=== PATIENT | female | born 1980 | race Caucasian/White ===

== ENCOUNTER 2019-08-29 19:45 | Emergency (ER) | payer OTHER, SELFPAY ==
[2019-08-29 19:47] VITALS: BP 136/88; PULSE 77; RESP 16; TEMP 36.9; O2SAT 98
--- NOTE | 2019-08-29 20:12 | ED.URI ---
HPI - URI/Sore Throat General Chief Complaint: Upper Respiratory Infection Stated Complaint: cough/fever Time Seen by Provider: 08/29/19 19:58 Source: patient Mode of arrival: ambulatory Limitations: no limitations History of Present Illness HPI Narrative: Patient presents chief complaint of fever for 3 to 4 days and cough. Patient denies nausea, vomiting, diarrhea. Patient's been taking [id number] medication in attempt to alleviate her symptoms. Patient states that she just received her flu shot this past week. Related Data Home Medications Medication Instructions Recorded Confirmed bupropion HCl [Wellbutrin XL] 150 mg PO QAM 08/29/19 08/29/19 cetirizine [Zyrtec] 10 mg PO DAILY 08/29/19 08/29/19 fluticasone propionate [Flonase 2 spray INTRANASAL DAILY 08/29/19 08/29/19 Allergy Relief] sertraline [Zoloft] 50 mg PO DAILY 08/29/19 08/29/19 sertraline [Zoloft] 100 mg PO DAILY 08/29/19 08/29/19 Allergies Allergy/AdvReac Type Severity Reaction Status Date / Time metoclopramide [From Reglan] Allergy Anxiety Verified 08/29/19 20:07 topiramate [From Topamax] Allergy Altered Verified 08/29/19 20:08 Sense of Taste levofloxacin [From Levaquin] AdvReac Muscle Pain Verified 08/29/19 20:08 Sulfa (Sulfonamide AdvReac Hives Verified 08/29/19 20:08 Antibiotics) Review of Systems Review of Systems: Narrative: CONSTITUTIONAL: Reports fever, denies chills, or sweats. EYES: Denies visual changes, redness, or discharge. ENT: Denies rhinorrhea, congestion, sore throat, or otalgia. CARDIOVASCULAR: Denies chest pain, palpitations, or edema. RESPIRATORY: Reports cough denies dyspnea. GASTROINTESTINAL: Denies abdominal pain, nausea, vomiting, or diarrhea. GENITOURINARY: Denies dysuria or hematuria. SKIN: Denies rash or itching. MUSCULOSKELETAL: Denies back pain, joint pain, or myalgia. NEUROLOGIC: Denies headache, numbness, dizziness, or weakness. PSYCHIATRIC: Denies anxiety or depression. [facility] Past Medical History Medical History (Updated 08/29/19 @ 20:37 by Michael Lugo PA-C) Anxiety and depression Seasonal allergies Social History Social History (Updated 08/29/19 @ 20:37 by Michael Lugo PA-C) Substance use: never Gender identity (if verbalized by the patient): Female Exam Narrative: Exam Narrative: GENERAL: Well-appearing, well-nourished, and in no acute distress. HEAD: Normocephalic, atraumatic. EYES: PERRLA and EOMI. ENT: Nares clear, no rhinorrhea or epistaxis. Mucous membranes moist. Oropharynx without tonsillar hypertrophy exudate or other lesions. Bilateral TMs pearly gould nonbulging NECK: Supple. No adenopathy or masses. CHEST: Clear to auscultation. No respiratory distress. HEART: Regular rate and rhythm. EXTREMITIES: Normal range of motion. No edema. SKIN: Warm, dry, no rash. NEURO: No focal deficits. Alert and oriented x3. PSYCH: Normal mood and affect. Course Vital Signs Vital signs: Vital Signs Temperature 98.4 F 08/29/19 19:47 Pulse Rate 77 08/29/19 19:47 Respiratory Rate 16 08/29/19 19:47 Blood Pressure 136/88 08/29/19 19:47 Pulse Oximetry 98 08/29/19 19:47 Temperature 98.4 F 08/29/19 19:47 Pulse Rate 77 08/29/19 19:47 Respiratory Rate 16 08/29/19 19:47 Blood Pressure 136/88 08/29/19 19:47 Pulse Oximetry 98 08/29/19 19:47 MDM - URI/Sore Throat MDM Narrative Medical decision making narrative: Discussed with patient that she is out of the window for 48 hours for antivirals. Discussed with patient symptomatic treatment and follow-up with primary care if symptoms persist. Instructed patient she must be fever free for 24 hours without ibuprofen or Tylenol before returning to work or school. Patient verbalized understand agreeable plan denies any other questions or concerns. Patient is not toxic in appearance her vital signs. And is appropriate for outpatient management of influenza. Differential Diagnosis Differential
== END 2019-08-29 20:30 | disposition home or self-care (01) ==
PROVIDERS: Emergency Provider Emergency Medicine; PCP Family Medicine
DX: J10.1 Influenza due to other identified influenza virus with other respiratory manifestations (principal)
CPT/HCPCS: 87804; 99283

== ENCOUNTER 2020-02-28 18:59 | Emergency (ER) | payer OTHER, SELFPAY ==
--- NOTE | ~2020-02-28 | XR_ITS ---
EXAMINATION: XR chest 2V DATE: 02/28/2020 21:50 INDICATION: Lightheadedness. Right-sided chest pain. TECHNIQUE: PA and lateral views of the chest were obtained. COMPARISON: None FINDINGS: The lungs are clear with no focal airspace opacities, pulmonary edema, pleural effusion or pneumothor ax. The cardiomediastinal silhouette is normal. Visualized bones and soft tissues are unremarkable. IMPRESSION: 1. Normal chest radiograph. Reviewed, dictated and finalized at location A. IMPRESSION: 1. Normal chest radiograph.
--- NOTE | ~2020-02-28 | CT_ITS ---
EXAMINATION: CT abdomen pelvis w con DATE: 02/28/2020 21:47 INDICATION: Back pain radiating into the abdomen TECHNIQUE: Computed tomography (CT) of the abdomen and pelvis was performed with 100 mL Omnipaque-350 intravenous contrast. Automated exposure control and iterative reconstruction technique were employe d. The dose-length product was 993.50 mGy-cm. COMPARISON: None FINDINGS: Lung bases are clear. Heart size is normal. No pericardial or pleural effusion. Liver, gallbladder, s pleen, pancreas, bilateral adrenal glands and kidneys are normal. Bowels including the appendix are n ormal. Bladder, anteverted uterus and bilateral adnexa are unremarkable. No free intraperitoneal gas or fluid. No pathologically enlarged abdominal or pelvic lymphadenopathy. Tiny fat-containing umbilic al hernia. Bones are unremarkable. IMPRESSION: 1. No acute intra-abdominal/pelvic process. Reviewed, dictated and finalized at location A.
[2020-02-28 19:02] VITALS: BP 163/84; PULSE 58; RESP 17; TEMP 36.2; O2SAT 98
[2020-02-28 19:30] LABS: Add Urine Microscopic? YES; Appearance Urine Clear (Clear); Bacteria Urine Trace /hpf; Bilirubin Urine Negative (Negative); Blood Urine Negative (Negative); Color Urine Yellow (Yellow); Glucose Urine UA Negative (Negative); Ketones Urine Negative (Negative); Leukocyte Esterase Ur 2+ LEU/UL (Negative); Mucus Urine Rare /lpf; Nitrate Urine Negative (Negative); Protein Urine Negative (Negative); RBC Urine 0-2 /hpf (0-2); Specific Grav Ur 1.012 (1.001-1.035); Squamous Epithelial Cell Urine Moderate /hpf (Few); Urobilinogen Urine Negative mg/dL (<2.0); WBC Urine 31-50 /hpf
--- NOTE | 2020-02-28 20:12 | ECG_ITS ---
Measurements Intervals [place] Rate: 47 P: 12 AR: 156 QRS: 8 QRSD: 122 T: 14 QT: 480 QTc: 428 Interpretive Statements SINUS BRADYCARDIA RSR' IN V1 OR V2, CONSIDER RIGHT VENTRICULAR HYPERTROPHY OR RIGHT VCD BORDERLINE ECG Electronically Signed On 02-29-2020 7:34:26 CDT by Bladimir Workman D.O.
--- NOTE | 2020-02-28 20:25 | ED.BACK ---
HPI - Back Pain/Injury General Chief Complaint: Back Pain/Injury Stated Complaint: flank pain, odor to urine Time Seen by Provider: 02/28/20 20:01 Source: patient Mode of arrival: ambulatory Limitations: no limitations History of Present Illness HPI Narrative: This is a 39 year old female that presents to the ER for back pain x 1 day. No known injury or trauma. Pain is worse with movement and relieved with rest. Reports the pain wraps around to her abdomen. Reports she recently started a new medication for her psoriatic arthritis. Also reports she currently feels lightheaded. Denies fever, chest pain, shortness of breath, nausea, vomiting, or dysuria. Related Data Home Medications Medication Instructions Recorded Confirmed bupropion HCl [Wellbutrin XL] 150 mg PO QAM 08/29/19 08/29/19 cetirizine [Zyrtec] 10 mg PO DAILY 08/29/19 08/29/19 fluticasone propionate [Flonase 2 spray INTRANASAL DAILY 08/29/19 08/29/19 Allergy Relief] sertraline [Zoloft] 100 mg PO DAILY 08/29/19 08/29/19 meloxicam 02/28/20 methotrexate sodium 02/28/20 02/28/20 Allergies Allergy/AdvReac Type Severity Reaction Status Date / Time metoclopramide [From Reglan] Allergy Anxiety Verified 02/28/20 19:06 topiramate [From Topamax] Allergy Altered Verified 02/28/20 19:06 Sense of Taste levofloxacin [From Levaquin] AdvReac Muscle Pain Verified 02/28/20 19:06 Sulfa (Sulfonamide AdvReac Hives Verified 02/28/20 19:06 Antibiotics) Review of Systems Review of Systems: Narrative: CONSTITUTIONAL: Denies fever CARDIOVASCULAR: Denies chest pain RESPIRATORY: Denies dyspnea. GASTROINTESTINAL: Reports abdominal pain. Denies nausea, vomiting GENITOURINARY: Denies dysuria or hematuria. SKIN: Denies rash MUSCULOSKELETAL: Reports back pain, joint pain, and myalgia. NEUROLOGIC: Denies numbness, or weakness. All systems reviewed & are unremarkable except as noted in HPI and below PMFSH Past Medical History Medical History (Updated 02/28/20 @ 22:36 by Donna Vogt PA-C) Anxiety and depression Seasonal allergies Social History Social History (Updated 08/29/19 @ 20:37 by Michael Lugo PA-C) Substance use: never Gender identity (if verbalized by the patient): Female Exam Narrative: Exam Narrative: GENERAL: Well-appearing, well-nourished, and in no acute distress. HEAD: Normocephalic, atraumatic. EYES: PERRLA and EOMI. ENT: Nares clear, no rhinorrhea or epistaxis. Mucous membranes moist. Oropharynx without tonsillar hypertrophy exudate or other lesions. Bilateral TMs pearly gould non-bulging NECK: Supple. No adenopathy or masses. CHEST: Clear to auscultation. No respiratory distress. No wheezes rales or rhonchi HEART: Regular rate and rhythm. No murmur heard. Normal peripheral pulses. ABDOMEN: Soft, nontender, nondistended, normal active bowel sounds. No CVA tenderness. BACK: Tender to palpation of the thoracic paraspinal musculature EXTREMITIES: Normal range of motion. No edema. Strength equal in bilateral upper and lower extremities (5/5) SKIN: Warm, dry, no rash. NEURO: No focal deficits. Alert and oriented x3. Cranial nerves II through XII grossly intact PSYCH: Normal mood and affect Course Vital Signs Vital signs: Vital Signs Temperature 97.1 F L 02/28/20 19:02 Pulse Rate 58 L 02/28/20 19:02 Respiratory Rate 17 02/28/20 19:02 Blood Pressure 163/84 H 02/28/20 19:02 Pulse Oximetry 98 02/28/20 19:02 Temperature 97.1 F L 02/28/20 19:02 Pulse Rate 68 02/28/20 21:03 Respiratory Rate 17 02/28/20 19:02 Blood Pressure 126/85 02/28/20 21:03 Pulse Oximetry 98 02/28/20 19:02 MDM - Back Pain/Injury MDM Narrative Medical decision making narrative: Patient presents to the ER for back pain x 1 day. No known injury or trauma. Patient is neurologically intact. She is afebrile and nontoxic-appearing. CBC is without leukocytosis. Metabolic panel without concerning findings. UA with evidence of possi
[2020-02-28] MEDS: SODIUM CHLORIDE 0.9% IV 1,000 ML 999 ML IV CONT (20:50)
[2020-02-28 21:00] VITALS: BP 129/82; BP 145/85; PULSE 49; PULSE 52
[2020-02-28 21:03] VITALS: BP 126/85; PULSE 68
[2020-02-28 21:10] LABS: Basophils Absolute Auto 0.1 K/mm3 (0.0-0.1); Basophils Percent Auto 0.8 % (0.2-1.2); Eosinophils Absolute Auto 0.2 K/mm3 (0-0.3); Eosinophils Percent Auto 2.5 % (0-4.4); Hematocrit 37.4 % (37.0-47.0); Hemoglobin 12.2 g/dL (12.0-15.0); Immature Granulocyte Absolute 0.02 K/mm3 (0.00-0.031); Immature Granulocyte Percent A 0.3 % (0-0.5); Lymphocytes Absolute Auto 2.53 K/mm3 (0.9-3.2); Lymphocytes Percent Auto 35.7 % (18.3-44.2); Mean Corpuscular HGB Conc 32.6 g/dl (32-36); Mean Corpuscular Hemoglobin 26.5 pg (26-34); Mean Corpuscular Volume 81.3 fl (80-100); Mean Platelet Volume 9.3 fl (7.4-10.4); Monocytes Absolute Auto 0.3 K/mm3 (0.1-0.6); Monocytes Percent Auto 4.2 % (2.6-8.5); Neutrophils Percent Auto 56.5 % (45.5-73.1); Platelet Count Result 452 k/mm3 (150-375); Red Cell Distribution Width 14.3 % (11.5-14.5); White Blood Count 7.1 K/mm3 (4.5-10.0)
[2020-02-28 21:23] LABS: Alanine Aminotransferase 35 U/L (4-35); Albumin Level 4.1 g/dL (3.5-5.1); Alkaline Phosphatase 79 U/L (38-126); Anion Gap 7 mmol/L (8-16); Aspartate Amino Transferase 40 U/L (14-36); Bilirubin,Total 0.6 mg/dL (0.2-1.3); Blood Urea Nitrogen 9 mg/dL (7-17); Calcium 9.3 mg/dL (8.4-10.2); Carbon Dioxide 24 mmol/L (22-30); Chloride 105 mmol/L (98-107); Estimated CRCL calculation 117 ml/min; Estimated Glomerular Filt Rate > 60; Glucose 103 mg/dL (65-105); Lipase 40 U/L (23-300); Potassium 4.3 mmol/L (3.4-5.0); Sodium 136 mmol/L (137-145)
[2020-02-28 23:11] VITALS: BP 131/82; PULSE 48; RESP 16; TEMP 36.2; O2SAT 100
== END 2020-02-28 23:12 | disposition home or self-care (01) ==
PROVIDERS: Physician Assistant; Emergency Provider Family Medicine; PCP Family Medicine
DX: N30.00 Acute cystitis without hematuria (principal); M54.6 Pain in thoracic spine; L40.50 Arthropathic psoriasis, unspecified; F41.9 Anxiety disorder, unspecified; F32.9 Major depressive disorder, single episode, unspecified; R00.1 Bradycardia, unspecified; R94.31 Abnormal electrocardiogram [ECG] [EKG]
CPT/HCPCS: 36415; 71046; 74177; 80053; 81001; 81025; 83690; 85025; 87086; 87088; 93005; 96365; 99284; J0131; J7030; Q9967

== ENCOUNTER 2020-04-20 04:09 | Emergency (ER) | payer OTHER, SELFPAY ==
[2020-04-20 04:16] VITALS: BP 171/97; PULSE 61; RESP 18; TEMP 36.1; O2SAT 99
[2020-04-20 04:32] LABS: Basophils Absolute Auto 0.1 K/mm3 (0.0-0.1); Basophils Percent Auto 0.8 % (0.2-1.2); Eosinophils Absolute Auto 0.4 K/mm3 (0-0.3); Eosinophils Percent Auto 4.6 % (0-4.4); Hematocrit 37.6 % (37.0-47.0); Hemoglobin 12.3 g/dL (12.0-15.0); Immature Granulocyte Absolute 0.01 K/mm3 (0.00-0.031); Immature Granulocyte Percent A 0.1 % (0-0.5); Lymphocytes Absolute Auto 2.96 K/mm3 (0.9-3.2); Lymphocytes Percent Auto 34.1 % (18.3-44.2); Mean Corpuscular HGB Conc 32.7 g/dl (32-36); Mean Corpuscular Hemoglobin 27.7 pg (26-34); Mean Corpuscular Volume 84.7 fl (80-100); Mean Platelet Volume 9.9 fl (7.4-10.4); Monocytes Absolute Auto 0.5 K/mm3 (0.1-0.6); Monocytes Percent Auto 6.1 % (2.6-8.5); Neutrophils Absolute Auto 4.7 K/mm3 (1.3-6.7); Neutrophils Percent Auto 54.3 % (45.5-73.1); Platelet Count Result 444 k/mm3 (150-375); Red Blood Count 4.44 M/mm3 (4.2-5.4); Red Cell Distribution Width 14.8 % (11.5-14.5); White Blood Count 8.7 K/mm3 (4.5-10.0)
--- NOTE | 2020-04-20 04:36 | ED.BACK ---
HPI - Back Pain/Injury General Chief Complaint: Back Pain/Injury Stated Complaint: right flank pain Time Seen by Provider: 04/20/20 04:34 Source: patient Mode of arrival: ambulatory Limitations: no limitations History of Present Illness HPI Narrative: Patient is a 40-year-old female complaining of right flank pain 9 out of 10, dull ache, radiating to her RUQ, started approximately 1 week ago. Patient states that she was seen at another hospital 1 week ago for this complaint had labs and CT scan done was told it could be her gallbladder but was told that her CAT scan is normal. Denies any nausea, vomiting, diarrhea, urinary symptoms or fever. Related Data Home Medications Medication Instructions Recorded Confirmed bupropion HCl [Wellbutrin XL] 150 mg PO QAM 08/29/19 08/29/19 cetirizine [Zyrtec] 10 mg PO DAILY 08/29/19 08/29/19 fluticasone propionate [Flonase 2 spray INTRANASAL DAILY 08/29/19 08/29/19 Allergy Relief] sertraline [Zoloft] 100 mg PO DAILY 08/29/19 08/29/19 meloxicam 02/28/20 methotrexate sodium 02/28/20 02/28/20 Allergies Allergy/AdvReac Type Severity Reaction Status Date / Time metoclopramide [From Reglan] Allergy Anxiety Verified 02/28/20 19:06 topiramate [From Topamax] Allergy Altered Verified 02/28/20 19:06 Sense of Taste levofloxacin [From Levaquin] AdvReac Muscle Pain Verified 02/28/20 19:06 Sulfa (Sulfonamide AdvReac Hives Verified 02/28/20 19:06 Antibiotics) Review of Systems Review of Systems: All systems reviewed & are unremarkable except as noted in HPI and below Constitutional: Constitutional: Denies body ache(s), Denies chills, Denies excessive sweating, Denies fatigue, Denies fever(s), Denies headache(s), Denies lethargy, Denies malaise, Denies weakness and Denies weight loss Eyes: Eyes: Denies blurry vision, Denies change in vision and Denies loss of vision ENT: Denies dizziness, Denies ear discharge, Denies headache(s), Denies lip swelling, Denies epistaxis, Denies nasal congestion, Denies neck pain, Denies throat swelling and Denies tongue swelling Cardiovascular: Cardiovascular: Denies chest pain, Denies chest pain at rest, Denies chest pain with activity, Denies diaphoresis, Denies rapid heart rate, Denies edema, Denies irregular heart rhythm, Denies lightheadedness, Denies palpitations, Denies dyspnea and Denies dyspnea on exertion Respiratory: Respiratory: Denies chest congestion, Denies cough, Denies hemoptysis, Denies dyspnea and Denies dyspnea on exertion Gastrointestinal: Gastrointestinal: Denies abdominal pain, Denies melena, Denies hematochezia, Denies diarrhea, Denies nausea, Denies vomiting and Denies hematemesis Musculoskeletal: Musculoskeletal: Denies abnormal gait, Denies deformity, Denies joint swelling, Denies limited range of motion, Denies neck pain and Denies numbness Neurologic: Denies Abnormal speech present, Denies abnormal gait, Denies confusion, Denies dizziness, Denies headache(s), Denies focal weakness, Denies loss of vision, Denies numbness, Denies Other visual disturbances, Denies Sensory deficit (Neuro) and Denies weakness Psychiatric: Psychiatric: Denies confusion, Denies depression, Denies auditory hallucinations, Denies homicidal ideation and Denies suicidal ideation Endocrine: Endocrine: Denies cold intolerance, Denies excessive sweating, Denies fatigue, Denies heat intolerance and Denies palpitations Hematologic/Lymphatic: Hematologic/Lymphatic: Denies easy bleeding and Denies easy bruising Allergic/Immunologic: Allergic/Immunologic: Denies lip swelling, Denies throat swelling and Denies tongue swelling [facility] Past Medical History Medical History (Updated 04/20/20 @ 05:16 by Sal Pratt MD) Anxiety and depression Seasonal allergies Social History Social History (Updated 08/29/19 @ 20:37 by Michael Lugo PA-C) Substance use: never Gender identity (if verbalized by the patient): Female Exam Const: General: co
[2020-04-20 04:48] LABS: Alanine Aminotransferase 38 U/L (4-35); Albumin Level 4.5 g/dL (3.5-5.1); Alkaline Phosphatase 68 U/L (38-126); Anion Gap 11 mmol/L (8-16); Aspartate Amino Transferase 42 U/L (14-36); Bilirubin,Total 0.4 mg/dL (0.2-1.3); Blood Urea Nitrogen 16 mg/dL (7-17); Calcium 9.4 mg/dL (8.4-10.2); Carbon Dioxide 23 mmol/L (22-30); Chloride 105 mmol/L (98-107); Estimated Glomerular Filt Rate > 60; Glucose 120 mg/dL (65-105); Lipase 56 U/L (23-300); Potassium 4.1 mmol/L (3.4-5.0); Sodium 139 mmol/L (137-145)
[2020-04-20 05:01] LABS: Add Urine Microscopic? YES; Appearance Urine Clear (Clear); Bacteria Urine Trace /hpf; Bilirubin Urine Negative (Negative); Blood Urine Negative (Negative); Color Urine Colorless (Yellow); Glucose Urine UA Negative (Negative); Ketones Urine Negative (Negative); Leukocyte Esterase Ur Trace LEU/UL (Negative); Nitrate Urine Negative (Negative); Protein Urine Negative (Negative); RBC Urine 0-2 /hpf (0-2); Specific Grav Ur 1.005 (1.001-1.035); Squamous Epithelial Cell Urine Few /hpf (Few); Urobilinogen Urine Negative mg/dL (<2.0); WBC Urine 0-3 /hpf
[2020-04-20] MEDS: KETOROLAC 30 MG/ML VIAL (*BKC) IV PUSH (05:20)
[2020-04-20 05:45] VITALS: BP 137/102; PULSE 60; RESP 18; TEMP 37.1; O2SAT 98
== END 2020-04-20 05:48 | disposition home or self-care (01) ==
PROVIDERS: Emergency Provider Emergency Medicine; PCP Family Medicine
DX: R10.9 Unspecified abdominal pain (principal); F41.9 Anxiety disorder, unspecified; F32.9 Major depressive disorder, single episode, unspecified
CPT/HCPCS: 36415; 80053; 81001; 81025; 83690; 85025; 96374; 99284; J1885

== ENCOUNTER 2024-02-29 11:27 | Emergency (ER) | payer SELFPAY ==
--- NOTE | ~2024-02-29 | XR_ITS ---
EXAMINATION: XR chest 2V 02/29/2024 12:44 INDICATION: Chest pain PROCEDURE: 2 view chest COMPARISON: 02/28/2020 FINDINGS: The lungs are clear. The cardiomediastinal silhouette is within normal limits. There are no pleural effusions. There is no pneumothorax suspected. IMPRESSION: 1: NO ACUTE CARDIOPULMONARY DISEASE. Reviewed, dictated and finalized at location B.
[2024-02-29 11:20] VITALS: BP 160/89; PULSE 60; RESP 16; TEMP 36.4; O2SAT 93
[2024-02-29 11:41] LABS: Basophils Absolute Auto 0.1 K/mm3 (0.0-0.1); Basophils Percent Auto 0.6 % (0.2-1.2); Eosinophils Absolute Auto 0.2 K/mm3 (0-0.3); Eosinophils Percent Auto 1.7 % (0-4.4); Hematocrit 39.1 % (37.0-47.0); Immature Granulocyte Absolute 0.03 K/mm3 (0.00-0.031); Immature Granulocyte Percent A 0.3 % (0-0.5); Lymphocytes Absolute Auto 2.74 K/mm3 (0.9-3.2); Lymphocytes Percent Auto 31.9 % (18.3-44.2); Mean Corpuscular HGB Conc 33.2 g/dl (32-36); Mean Corpuscular Hemoglobin 29.5 pg (26-34); Mean Corpuscular Volume 88.9 fl (80-100); Mean Platelet Volume 9.2 fl (7.4-10.4); Monocytes Absolute Auto 0.5 K/mm3 (0.1-0.6); Monocytes Percent Auto 5.2 % (2.6-8.5); Neutrophils Absolute Auto 5.2 K/mm3 (1.3-6.7); Neutrophils Percent Auto 60.3 % (45.5-73.1); Platelet Count Result 525 k/mm3 (150-375); Red Cell Distribution Width 13.2 % (11.5-14.5); White Blood Count 8.6 K/mm3 (4.5-10.0)
[2024-02-29 11:56] LABS: Alanine Aminotransferase 40 U/L (6-35); Albumin Level 4.1 g/dL (3.5-5.1); Alkaline Phosphatase 68 U/L (38-126); Anion Gap 8 mmol/L (4-12); Aspartate Amino Transferase 41 U/L (14-36); Bilirubin,Total 0.6 mg/dL (0.2-1.3); Blood Urea Nitrogen 12 mg/dL (7-17); Calcium 9.1 mg/dL (8.4-10.2); Carbon Dioxide 25 mmol/L (22-30); Chloride 102 mmol/L (98-107); Estimated CRCL calculation 122 ml/min; Estimated Glomerular Filt Rate > 60; Glucose 102 mg/dL (65-110); Lipase 53 U/L (23-300); Sodium 135 mmol/L (137-145)
--- NOTE | 2024-02-29 12:08 | ECG_ITS ---
Test Date: 2024-02-29 12:58:25 Measurements Intervals [place] Rate: 57 P: 20 IN: 161 QRS: 6 QRSD: 118 T: 21 QT: 441 QTc: 432 Interpretive Statements SINUS BRADYCARDIA MODERATE INTRAVENTRICULAR CONDUCTION DELAY [110+ ms QRS DURATION] No previous ECG available for comparison Electronically Signed On 03-01-2024 14:24:46 CDT by Abelardo Alford M.D.
--- NOTE | 2024-02-29 12:10 | ED.ABDPAIN ---
HPI - Abdominal Pain General Chief Complaint: Abdominal Pain Stated Complaint: Epigastric pain History of Present Illness HPI narrative: 43-year-old female with a history of cholecystectomy tubal ligation presents to emergency department for epigastric abdominal pain that started 1 hour prior to arrival. Patient states she was at work when she began developing pain in her epigastrium that shot up into her chest. She describes it as a sharp needle-like sensation. States it is worse when she sits up in flexes her chest muscles. 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 She denies current chest pain or shortness of breath, current abdominal pain, nausea vomiting, fever. She is currently on her menstrual cycle. States she took 325 mg of aspirin prior to arrival. denies leg edema, recent surgeries or hospitalizations, cough or congestion, hemoptysis, history of VTE. She is also reporting some dysuria. She is currently on her menstrual cycle. Denies vaginal discharge or concern for STDs. Related Data Home Medications Medication Instructions Recorded Confirmed bupropion HCl 150 mg 24 hr tablet, 150 mg PO QAM 08/29/19 08/29/19 extended release (Wellbutrin XL) cetirizine 10 mg tablet (Zyrtec) 10 mg PO DAILY 08/29/19 08/29/19 fluticasone propionate 50 2 spray intranasal DAILY 08/29/19 08/29/19 mcg/actuation nasal spray,suspension (Flonase Allergy Relief) sertraline 100 mg tablet (Zoloft) 100 mg PO DAILY 08/29/19 08/29/19 meloxicam 15 mg tablet 02/28/20 methotrexate sodium 2.5 mg tablet 02/28/20 02/28/20 Allergies Allergy/AdvReac Type Severity Reaction Status Date / Time metoclopramide [From Reglan] Allergy Anxiety Verified 02/29/24 12:25 topiramate [From Topamax] Allergy Altered Verified 02/29/24 12:25 Sense of Taste levofloxacin [From Levaquin] AdvReac Muscle Pain Verified 02/29/24 12:25 morphine AdvReac Nausea and Verified 02/29/24 12:26 Vomiting Sulfa (Sulfonamide AdvReac Hives Verified 02/29/24 12:25 Antibiotics) Review of Systems Review of Systems: All systems reviewed & are unremarkable except as noted in HPI and below PMFSH Past Medical History Medical History Anxiety and depression Seasonal allergies Social History Social History Substance use: never Gender identity (if verbalized by the patient): Female Exam Narrative: GENERAL: Well-appearing, well-nourished, and in no acute distress. HEAD: Normocephalic, atraumatic. EYES: PERRLA and EOMI. ENT: Nares clear, no rhinorrhea or epistaxis. Mucous membranes moist. NECK: Supple. CHEST: Clear to auscultation. No respiratory distress. Tenderness to bilateral sternal border to palpation HEART: Regular rate and rhythm. No murmur heard. Normal peripheral pulses. ABDOMEN: Soft, nontender, nondistended, normal active bowel sounds. no rebound, guarding or rigidity. No CVA tenderness. EXTREMITIES: Normal range of motion. No edema. Negative Homans bilaterally SKIN: Warm, dry, no rash. NEURO: No focal deficits. Alert and oriented x3 Course Vital Signs Vital signs: Vital Signs Temperature 97.5 F L 02/29/24 11:20 Pulse Rate 60 02/29/24 11:20 Respiratory Rate 16 02/29/24 11:20 Blood Pressure 160/89 H 02/29/24 11:20 Pulse Oximetry 93 02/29/24 11:20 Oxygen Delivery Room Air 02/29/24 11:20 Temperature 97.5 F L 02/29/24 11:20 Pulse Rate 60 02/29/24 11:20 Respiratory Rate 16 02/29/24 11:20 Blood Pressure 160/89 H 02/29/24 11:20 Pulse Oximetry 93 02/29/24 11:20 Oxygen Delivery Room Air 02/29/24 11:20 MDM - Abdominal Pain MDM Narrative Medical decision making narrative: 43-year-old female presents to emergency department for epigastric abdominal pain and chest p
[2024-02-29] MEDS: BELLADONNA ALK/PHENOB ELIX 10 ML, MAG HYDROX/ALUMINUM HYD/SIMETH 30 ML, LIDOCAINE HCL 2... PO (12:22)
[2024-02-29] MEDS: FAMOTIDINE 20 MG/2 ML VIAL IV PUSH (12:24)
[2024-02-29 12:32] LABS: Add Urine Microscopic? YES; Appearance Urine Cloudy (Clear); Bacteria Urine Rare /hpf; Bilirubin Urine Negative (Negative); Blood Urine 3+ (Negative); Color Urine Dark Yellow (Yellow); Glucose Urine UA Negative (Negative); Ketones Urine Trace mg/dL (Negative); Leukocyte Esterase Ur 2+ LEU/UL (Negative); Nitrate Urine Negative (Negative); Non Pathogenic Casts 0-2; Protein Urine 1+ mg/dL (Negative); RBC Urine >100 /hpf (0-2); Specific Grav Ur 1.024 (1.001-1.035); Squamous Epithelial Cell Urine None Seen /hpf (Few); WBC Urine 21-50 /hpf (0-3); pH Urine 5.5 (5.0-9.0)
[2024-02-29 12:39] LABS: Troponin I < 0.012 ng/mL (0.000-0.034)
[2024-02-29] MEDS: CEPHALEXIN 500 MG CAPSULE PO (13:47)
[2024-02-29 14:10] VITALS: BP 139/94; PULSE 83; RESP 15; TEMP 36.4; O2SAT 97
== END 2024-02-29 14:12 | disposition home or self-care (01) ==
PROVIDERS: Emergency Provider Physician Assistant
DX: M94.0 Chondrocostal junction syndrome [Tietze] (principal); N30.01 Acute cystitis with hematuria; F41.9 Anxiety disorder, unspecified; F32.A Depression, unspecified; R00.1 Bradycardia, unspecified
CPT/HCPCS: 36415; 71046; 80053; 81001; 83690; 84484; 85025; 87086; 87088; 93005; 96374; 99284; A9270